=== PATIENT | female | born 1960 | race Caucasian/White ===

== ENCOUNTER → 2017-11-11 | Day surgery (SDC) | payer MEDICAID ==
[~2017-11-11] MED LIST: Lactated Ringers 1,000 ML IV SCH; Midazolam 1 MG/ML 2 ML SDV ONE; Propofol 200 MG/20 ML SDV ONE; fentaNYL 100 MCG/2 ML SDV ONE
[2017-11-11 11:28] VITALS: BP 143/96
--- NOTE | 2017-11-11 11:48 | OR ---
DATE OF PROCEDURE: 11/11/2017 PREOPERATIVE DIAGNOSIS: History of colon polyps. POSTOPERATIVE DIAGNOSES: 1. Unremarkable colonoscopy. 2. History of colon polyps. PROCEDURE: Colonoscopy to the cecum. SURGEON: Salazar Lema MD. ANESTHESIA: IV anesthesia with monitored anesthesia care. INDICATION: This 57-year-old white female is here for a colonoscopy. She has a history of colon polyps. She says her last colonoscopic exam was done four years ago, at which point, she had five polyps removed. I counseled her for the procedure, including risks and alternatives, and she gave her informed consent to proceed. DESCRIPTION OF PROCEDURE: The patient was placed in the left lateral decubitus position. IV anesthesia was administered by the Anesthesia Service. Time-out was held. A rectal exam was performed, which was unremarkable. The flexible video Olympus colonoscope was introduced through her anus, up her rectum, and out her colon all the way to the cecum. Once the cecum was reached, the scope was slowly withdrawn, examining the mucosa throughout. No mucosal abnormalities were noted. No neoplastic lesions were seen. The scope was retroflexed in the rectum with the distal rectum appearing unremarkable. The scope was straightened and removed. She tolerated the procedure well. Salazar Lema MD /[id number] MTDD
== END ==
LOC: JP.SDS 07:37
PROVIDERS: ATTEND Surgery
DX: Z12.11 Encounter for screening for malignant neoplasm of colon (principal); Z86.010 Personal history of colon polyps; Z88.1 Allergy status to other antibiotic agents; Z88.8 Allergy status to other drugs, medicaments and biological substances; Z91.030 Bee allergy status
CPT/HCPCS: 45378; J2250; J2704; J3010; J7120

== ENCOUNTER 2019-11-08 12:35 | Emergency (ER) | payer MEDICAID ==
[2019-11-08 13:21] VITALS: BP 160/90; PULSE 79
--- NOTE | 2019-11-08 13:56 | EDM.PDOC ---
ED HPI GENERAL MEDICAL PROBLEM - General Chief Complaint: General Stated Complaint: chest pain LEFT ARM PAIN Time Seen by Provider: 11/08/19 13:59 Source of Information: Reports: Patient History Limitations: Reports: No Limitations - History of Present Illness INITIAL COMMENTS - FREE TEXT/NARRATIVE: pt was working at the [facility] home today. She was doing some some deep cleaning of a room because the resident was discharged. She developed acute left arm pain and she became very sweaty. Onset: Today, Sudden Duration: Hour(s): Location: Reports: Upper Extremity, Left, Other (pt was very diaphoretic. ) Associated Symptoms: Reports: Diaphoresis, Shortness of Breath Left Arm Pain Score (Numeric/FACES): 6 - Related Data Allergies Allergy/AdvReac Type Severity Reaction Status Date / Time amoxicillin [Amoxicillin] Allergy Rash Verified 11/08/19 13:25 cephalexin monohydrate Allergy Rash Verified 11/08/19 13:25 [From Keflex] ciprofloxacin [From Cipro] Allergy Rash Verified 11/08/19 13:25 ciprofloxacin HCl Allergy Rash Verified 11/08/19 13:25 [From Cipro] doxycycline Allergy Rash Verified 11/08/19 13:25 venom-honey bee Allergy Swelling Verified 11/08/19 13:25 [bee venom (honey bee)] Home Meds: Home Meds Acetaminophen/HYDROcodone [[place] 325-5 MG] 1 tab PO Q6H PRN 11/28/13 [History] Loratadine [Claritin] 10 mg PO DAILY 11/28/13 [History] Losartan [Cozaar] 50 mg PO DAILY 11/28/13 [History] Omeprazole 20 mg PO DAILY 11/28/13 [History] Potassium Chloride [Klor-Con M20] 20 meq PO DAILY 11/28/13 [History] Sertraline [Zoloft] 50 mg PO DAILY 11/28/13 [History] Simvastatin [Zocor] 20 mg PO BEDTIME 11/28/13 [History] Zolpidem [Ambien] 10 mg PO BEDTIME PRN 11/28/13 [History] hydroCHLOROthiazide [Hydrochlorothiazide] 25 mg PO DAILY 11/28/13 [History] metFORMIN [Glucophage] 1,000 mg PO BID 11/28/13 [History] Clear-Atadine 10 mg PO DAILY 11/09/17 [History] Insulin Glargine,Hum.Rec.Anlog [Elisha Miguel] 80 units SUBCUT BEDTIME 11/09/17 [History] Liraglutide [Victoza] 1.8 mg SUBCUT DAILY 11/09/17 [History] Metoprolol Succinate [Toprol XL] 25 mg PO DAILY 11/09/17 [History] Aspirin 325 mg PO DAILY 08/11/18 [History] atenoloL [Tenormin] 25 mg PO DAILY 08/11/18 [History] Past Medical History HEENT History: Reports: Impaired Vision Cardiovascular History: Reports: High Cholesterol, Hypertension Gastrointestinal History: Reports: Cholelithiasis, GERD Musculoskeletal History: Reports: Other (See Below) Other Musculoskeletal History: left knee injury Endocrine/Metabolic History: Reports: Diabetes, Type II, Osteoporosis Immunologic History: Reports: Other (See Below) Other Immunologic History: lyme disease - Past Surgical History HEENT Surgical History: Reports: None Cardiovascular Surgical History: Reports: None GI Surgical History: Reports: Cholecystectomy, Colonoscopy, Polypectomy Female Surgical History: Reports: Section Social & Family History - Tobacco Use Smoking Status *Q: Never Smoker - Caffeine Use Caffeine Use: Reports: Coffee - Recreational Drug Use Recreational Drug Use: No - Living Situation & Occupation Living situation: Reports: ED ROS GENERAL - Review of Systems Review Of Systems: See Below Constitutional: Reports: Other (pt developed severe left arm pain) HEENT: Reports: No Symptoms Respiratory: Reports: No Symptoms Cardiovascular: Reports: Other (pt developed acute left arm pain and did become very diaphoretic. ) Endocrine: Reports: No Symptoms GI/Abdominal: Reports: No Symptoms, Other (pt has r) : Reports: No Symptoms Musculoskeletal: Reports: Other ( severe pain in the left upper arm. She did become diaphoretic at that time. ) Skin: Reports: No Symptoms ED EXAM, GENERAL - Physical Exam Exam: See Below Free Text/Narrative:: pt arrived after developing severe left arm pain after moving some furtniture. She did become diaphoretic. Exam Limited By: No Limitations General Appearance: Alert, Mild Distress, Severe Distress Ears: Normal TMs Nose: Normal Inspection Throat/Mouth: Normal Inspection Head: Atraumatic Neck: Normal Inspection Respiratory/Chest: No Respiratory Distress Cardiovascular: Regular Rate, Rhythm, Other (no significant chest wall tenderness. ) GI/Abdominal: Soft, Non-Tender (Female) Exam: Deferred Rectal (Female) Exam: Deferred Back Exam: Normal Inspection Extremities: Other (pt has mild tenderness in the upper arm. ) Neurological: Alert, Oriented, Normal Cognition Psychiatric: Anxious Course - Vital Signs Last Recorded V/S: Last Vital Signs Temp 36.7 C 11/08/19 13:29 Pulse 79 11/08/19 13:29 Resp 20 11/08/19 13:29 BP 160/90 H 11/08/19 13:29 Pulse Ox 96 11/08/19 13:29 - Orders/Labs/Meds Labs: Laboratory Tests 11/08/19 11/08/19 11/08/19 Range/Units 14:08 14:08 14:08 WBC 8.1 (4.5-11.0) K/uL RBC 4.29 (3.30-5.50) M/uL Hgb 12.9 (12.0-15.0) g/dL Hct 37.8 (36.0-48.0) % MCV 88 (80-98) fL MCH 30 (27-31) pg MCHC 34 (32-36) % Plt Count 180 (150-400) K/uL Neut % (Auto) 60 (36-66) % Lymph % (Auto) 29 (24-44) % [place] % (Auto) 9 H (2-6) % Eos % (Auto) 2 (2-4) % Baso % (Auto) 0 (0-1) % Sodium 142 (140-148) mmol/L Potassium 3.4 L (3.6-5.2) mmol/L Chloride 106 (100-108) mmol/L Carbon Dioxide 29 (21-32) mmol/L Anion Gap 10.4 (5.0-14.0) mmol/L BUN 18 (7-18) mg/dL Creatinine 0.9 (0.6-1.0) mg/dL Est Cr Clr Drug Dosing 47.15 mL/min Estimated GFR (MDRD) > 60 (>60) Glucose 170 H (74-106) mg/dL Calcium 9.5 (8.5-10.1) mg/dL Total Bilirubin 0.3 (0.2-1.0) mg/dL AST 47 H (15-37) U/L ALT 69 (12-78) U/L Alkaline Phosphatase 58 (46-116) U/L Troponin I < 0.017 (0.000-0.056) ng/mL Total Protein 7.5 (6.4-8.2) g/dL Albumin 3.8 (3.4-5.0) g/dL Globulin 3.7 H (2.3-3.5) g/dL Albumin/Globulin Ratio 1.0 L (1.2-2.2) Meds: Medications Discontinued Medications Generic Name Dose Route Start Last Admin Trade Name Eric PRN Reason Stop Dose Admin Aspirin 324 mg 11/08/19 13:58 11/08/19 14:06 Aspirin PO 11/08/19 13:59 324 mg ONETIME ONE Administration - Re-Assessments/Exams Free Text/Narrative Re-Assessment/Exam: 11/08/19 16:15 Pt arrived with a history of pain in the upper arm on the left e diaphoretic after that. her trop was neg. Her other labs looked good. She remained painfree. 11/12/19 07:30 pt had a ekg with no acute changes. Departure - Departure Time of Disposition: 16:01 Disposition: Home, Self-Care 01 Condition: Fair Clinical Impression: Left arm pain, Diaphoresis - Discharge Information Instructions: Nonspecific Chest Pain, Adult Referrals: Kevin Huffman MD [Primary Care Provider] - Forms: ED Department Discharge Care Plan Goals: rtc for a cardiac stress test, rtc if the pain should reoccur, no work tomorrow. Sepsis Event Note (ED) - Evaluation Sepsis Screening Result: No Definite Risk
[2019-11-08] MEDS ORDERED: Aspirin 81 MG Tab.Chew PO ONE (13:58)
--- NOTE | 2019-11-08 14:36 | CR ---
CHEST: Portable 11/08/2019 at 2:18 PM CLINICAL HISTORY:Left arm pain COMPARISON:2016 FINDINGS: The heart is mildly enlarged pulmonary vascular is normal. There are atherosclerotic changes in the aorta.. No infiltrates are seen Impression: Mild cardiomegaly No acute cardiopulmonary process.
== END 2019-11-08 16:26 | disposition home or self-care (01) ==
LOC: JP.ED 12:35
DX: M79.622 Pain in left upper arm (principal); R61 Generalized hyperhidrosis; E78.00 Pure hypercholesterolemia, unspecified; I10 Essential (primary) hypertension; K21.9 Gastro-esophageal reflux disease without esophagitis; E11.9 Type 2 diabetes mellitus without complications; Z79.899 Other long term (current) drug therapy; Z79.4 Long term (current) use of insulin; Z79.82 Long term (current) use of aspirin; Z88.1 Allergy status to other antibiotic agents; Z91.030 Bee allergy status; X50.9XXA Other and unspecified overexertion or strenuous movements or postures, initial encounter; Y92.129 Unspecified place in nursing home as the place of occurrence of the external cause
CPT/HCPCS: 36415; 71045; 80053; 84484; 85025; 93005; 99285; A9270

== ENCOUNTER 2020-03-22 15:32 | Inpatient (IN) | payer MEDICAID ==
[2020-03-22] MEDS ORDERED: Acetaminophen 325 MG Tab PO PRN ×2 (18:08→19:31)
[2020-03-22] MEDS ORDERED: Albuterol/Ipratropium 4 GM Inhalation Spray INH STA (18:11)
--- NOTE | 2020-03-22 18:13 | EDM.PDOC ---
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 She has been afebrile complains of dry mouth sore throat - Related Data Allergies Allergy/AdvReac Type Severity Reaction Status Date / Time amoxicillin [Amoxicillin] Allergy Rash Verified 03/22/20 17:32 cephalexin monohydrate Allergy Rash Verified 03/22/20 17:32 [From Keflex] ciprofloxacin [From Cipro] Allergy Rash Verified 03/22/20 17:32 ciprofloxacin HCl Allergy Rash Verified 03/22/20 17:32 [From Cipro] doxycycline Allergy Rash Verified 03/22/20 17:32 venom-honey bee Allergy Swelling Verified 03/22/20 17:32 [bee venom (honey bee)] Home Meds: Home Meds Acetaminophen/HYDROcodone [[place] 325-5 MG] 1 tab PO Q6H PRN 11/28/13 [History] Loratadine [Claritin] 10 mg PO DAILY 11/28/13 [History] Losartan [Cozaar] 50 mg PO DAILY 11/28/13 [History] Omeprazole 20 mg PO DAILY 11/28/13 [History] Potassium Chloride [Klor-Con M20] 20 meq PO DAILY 11/28/13 [History] Simvastatin [Zocor] 20 mg PO BEDTIME 11/28/13 [History] Zolpidem [Ambien] 10 mg PO BEDTIME PRN 11/28/13 [History] hydroCHLOROthiazide [Hydrochlorothiazide] 25 mg PO DAILY 11/28/13 [History] metFORMIN [Glucophage] 1,000 mg PO BID 11/28/13 [History] Insulin Glargine,Hum.Rec.Anlog [Elisha Miguel] 80 units SUBCUT BEDTIME 11/09/17 [History] Liraglutide [Victoza] 1.8 mg SUBCUT DAILY 11/09/17 [History] Aspirin 325 mg PO DAILY 08/11/18 [History] atenoloL [Tenormin] 25 mg PO DAILY 08/11/18 [History] Insulin Aspart [NovoLOG] 1 - 10 unit SQ WITHMEALSANDBED PRN 03/22/20 [History] Past Medical History HEENT History: Reports: Impaired Vision Cardiovascular History: Reports: High Cholesterol, Hypertension Gastrointestinal History: Reports: Cholelithiasis, GERD 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: Musculoskeletal History: Reports: Osteoporosis, Other (See Below) Other Musculoskeletal History: left knee injury Endocrine/Metabolic History: Reports: Diabetes, Type II, Obesity/BMI 30+, Osteoporosis Immunologic History: Reports: Other (See Below) Other Immunologic History: lyme disease - Past Surgical History Head Surgeries/Procedures: Reports: None HEENT Surgical History: Reports: None Cardiovascular Surgical History: Reports: None GI Surgical History: Reports: Cholecystectomy, Colonoscopy, Polypectomy Female Surgical History: Reports: Section Endocrine Surgical History: Reports: None Musculoskeletal Surgical History: Reports: None Dermatological Surgical History: Reports: None Social & Family History - Tobacco Use Tobacco Use Status *Q: Former Tobacco User Used Tobacco, but Quit: Yes Month/Year Tobacco Last Used: 1989 Second Hand Smoke Exposure: No - Caffeine Use Caffeine Use: Reports: Coffee, Soda - Recreational Drug Use Recreational Drug Use: No - Living Situation & Occupation Living situation: Reports: ED ROS GENERAL - Review of Systems Review Of Systems: See Below Constitutional: Reports: Weakness. Denies: Fever HEENT: Reports: Throat Pain Respiratory: Reports: Shortness of Breath. Denies: Wheezing, Cough, Sputum Cardiovascular: Reports: Dyspnea on Exertion GI/Abdominal: Reports: No Symptoms : Reports: No Symptoms ED EXAM, GENERAL - Physical Exam Exam: See Below Exam Limited By: No Limitations General Appearance: Alert, Mild Distress Neck: Normal Inspection, Supple, Non-Tender, Full Range of Motion Respiratory/Chest: No Respiratory Distress, Lungs Clear, Normal Breath Sounds, No Accessory Muscle Use, Chest Non-Tender Cardiovascular: Regular Rate, Rhythm, No Murmur GI/Abdominal: Soft, Non-Tender Course - Vital Signs Last Recorded V/S: Last Vital Signs Temp 100.0 F 03/22/20 17:35 Pulse 67 03/22/20 19:15 Resp 18 03/22/20 17:35 BP 106/51 L 03/22/20 19:15 Pulse Ox 90 L 03/22/20 17:35 - Orders/Labs/Meds Orders: Active Orders 24 hr Category Date Time Status Nurse Communication: Isolation [RC] ASDIRECTED Care 03/22/20 19:32 Active RT Post Treatment Assessment [RC] Click to Edit Care 03/22/20 18:11 Active Chest 1V Frontal [CR] Stat Exams 03/22/20 18:09 Ordered CORONAVIRUS COVID-19, IRENE Stat Lab 03/22/20 18:08 Ordered Acetaminophen [TylenoL] Med 03/22/20 18:08 Active 650 mg PO Q4H PRN Acetaminophen [TylenoL] Med 03/22/20 19:31 Active 650 mg PO Q4H PRN Dextrose 50% in Water Med 03/22/20 20:10 Ordered 50 ml IVPUSH ASDIRECTED PRN Glucagon,Human Recombinant [GlucaGen] Med 03/22/20 20:10 Ordered 1 mg IM ASDIRECTED PRN Isolation [COMM] Routine Oth 03/22/20 18:09 Ordered Isolation [COMM] Stat Oth 03/22/20 18:08 Ordered Isolation [COMM] Stat Oth 03/22/20 19:31 Ordered Medication Orders Acetaminophen (Tylenol) 650 mg PO Q4H PRN PRN Reason: Fever Greater Than 101 Last Admin: 03/22/20 18:28 Dose: 650 mg Documented by: MOY Acetaminophen (Tylenol) 650 mg PO Q4H PRN PRN Reason: Fever Greater Than 101 Dextrose/Water (Dextrose 50% In Water) 50 ml IVPUSH ASDIRECTED PRN PRN Reason: Hypoglycemia Glucagon (Glucagen) 1 mg IM ASDIRECTED PRN PRN Reason: Hypoglycemia Labs: Laboratory Tests 03/22/20 03/22/20 03/22/20 Range/Units 17:30 17:30 17:30 WBC 6.2 (4.5-11.0) K/uL RBC 4.59 (3.30-5.50) M/uL Hgb 13.4 (12.0-15.0) g/dL Hct 41.5 (36.0-48.0) % MCV 90 (80-98) fL MCH 29 (27-31) pg MCHC 32 (32-36) % Plt Count 123 L (150-400) K/uL Neut % (Auto) 68 H (36-66) % Lymph % (Auto) 22 L (24-44) % [place] % (Auto) 9 H (2-6) % Eos % (Auto) 0 L (2-4) % Baso % (Auto) 0 (0-1) % D-Dimer, Quantitative 322 (0.0-400.0) ng/mL Puncture Site ABG pH (7.350-7.450) ABG pCO2 (35.0-42.0) mmHg ABG pO2 (75.0-100.0) mmHg ABG HCO3 (22.0-26.0) mmol/L ABG Total CO2 (21.0-25.0) mmol/L ABG O2 Saturation (95.0-98.0) % ABG O2 Content (15.0-23.0) %vol ABG Base Excess mm/L ABG Hemoglobin (12.0-16.0) g/dL ABG Oxyhemoglobin % ABG Carboxyhemoglobin (0.0-1.6) % ABG Methemoglobin % Kartik Test O2 Delivery Device Oxygen Flow Rate L Sodium (140-148) mmol/L Potassium (3.6-5.2) mmol/L Chloride (100-108) mmol/L Carbon Dioxide (21-32) mmol/L Anion Gap (5.0-14.0) mmol/L BUN (7-18) mg/dL Creatinine (0.6-1.0) mg/dL Est Cr Clr Drug Dosing mL/min Estimated GFR (MDRD) (>60) Glucose (74-106) mg/dL Lactic Acid (0.4-2.0) mmol/L Calcium (8.5-10.1) mg/dL Ferritin 523 H (8-388) ng/ml Total Bilirubin (0.2-1.0) mg/dL Direct Bilirubin (0.0-0.2) mg/dL Indirect Bilirubin AST (15-37) U/L ALT (12-78) U/L Alkaline Phosphatase (46-116) U/L Lactate Dehydrogenase (82-234) U/L C-Reactive Protein (0.0-0.3) mg/dL Total Protein (6.4-8.2) g/dL Albumin (3.4-5.0) g/dL Globulin (2.3-3.5) g/dL Albumin/Globulin Ratio (1.2-2.2) Procalcitonin ng/mL SARS-CoV-2 RNA (IRENE) (NEGATIVE) 03/22/20 03/22/20 03/22/20 Range/Units 17:30 17:30 17:30 WBC (4.5-11.0) K/uL RBC (3.30-5.50) M/uL Hgb (12.0-15.0) g/dL Hct (36.0-48.0) % MCV (80-98) fL MCH (27-31) pg MCHC (32-36) % Plt Count (150-400) K/uL Neut % (Auto) (36-66) % Lymph % (Auto) (24-44) % [place] % (Auto) (2-6) % Eos % (Auto) (2-4) % Baso % (Auto) (0-1) % D-Dimer, Quantitative (0.0-400.0) ng/mL Puncture Site ABG pH (7.350-7.450) ABG pCO2 (35.0-42.0) mmHg ABG pO2 (75.0-100.0) mmHg ABG HCO3 (22.0-26.0) mmol/L ABG Total CO2 (21.0-25.0) mmol/L ABG O2 Saturation (95.0-98.0) % ABG O2 Content (15.0-23.0) %vol ABG Base Excess mm/L ABG Hemoglobin (12.0-16.0) g/dL ABG Oxyhemoglobin % ABG Carboxyhemoglobin (0.0-1.6) % ABG Methemoglobin % Kartik Test O2 Delivery Device Oxygen Flow Rate L Sodium (140-148) mmol/L Potassium (3.6-5.2) mmol/L Chloride (100-108) mmol/L Carbon Dioxide (21-32) mmol/L Anion Gap (5.0-14.0) mmol/L BUN (7-18) mg/dL Creatinine (0.6-1.0) mg/dL Est Cr Clr Drug Dosing mL/min Estimated GFR (MDRD) (>60) Glucose (74-106) mg/dL Lactic Acid 1.9 (0.4-2.0) mmol/L Calcium (8.5-10.1) mg/dL Ferritin (8-388) ng/ml Total Bilirubin 0.4 (0.2-1.0) mg/dL Direct Bilirubin 0.18 (0.0-0.2) mg/dL Indirect Bilirubin 0.22 AST 70 H (15-37) U/L ALT 69 (12-78) U/L Alkaline Phosphatase 46 (46-116) U/L Lactate Dehydrogenase 407 H (82-234) U/L C-Reactive Protein 1.76 H (0.0-0.3) mg/dL Total Protein 7.1 (6.4-8.2) g/dL Albumin 2.9 L (3.4-5.0) g/dL Globulin 4.2 H (2.3-3.5) g/dL Albumin/Globulin Ratio 0.7 L (1.2-2.2) Procalcitonin 0.07 ng/mL SARS-CoV-2 RNA (IRENE) (NEGATIVE) 03/22/20 03/22/20 03/22/20 Range/Units 18:08 18:31 19:45 WBC (4.5-11.0) K/uL RBC (3.30-5.50) M/uL Hgb (12.0-15.0) g/dL Hct (36.0-48.0) % MCV (80-98) fL MCH (27-31) pg MCHC (32-36) % Plt Count (150-400) K/uL Neut % (Auto) (36-66) % Lymph % (Auto) (24-44) % [place] % (Auto) (2-6) % Eos % (Auto) (2-4) % Baso % (Auto) (0-1) % D-Dimer, Quantitative (0.0-400.0) ng/mL Puncture Site Rt.radial ABG pH 7.470 H (7.350-7.450) ABG pCO2 36.6 (35.0-42.0) mmHg ABG pO2 56.2 L (75.0-100.0) mmHg ABG HCO3 26.3 H (22.0-26.0) mmol/L ABG Total CO2 23.2 (21.0-25.0) mmol/L ABG O2 Saturation 89.7 L (95.0-98.0) % ABG O2 Content 16.3 (15.0-23.0) %vol ABG Base Excess 3.2 mm/L ABG Hemoglobin 13.2 (12.0-16.0) g/dL ABG Oxyhemoglobin 87.8 % ABG Carboxyhemoglobin 1.4 (0.0-1.6) % ABG Methemoglobin 0.7 % Kartik Test Passed O2 Delivery Device Nasal cannula Oxygen Flow Rate 4.0 L Sodium 136 L (140-148) mmol/L Potassium 3.9 (3.6-5.2) mmol/L Chloride 99 L (100-108) mmol/L Carbon Dioxide 25 (21-32) mmol/L Anion Gap 15.9 H (5.0-14.0) mmol/L BUN 22 H (7-18) mg/dL Creatinine 1.2 H (0.6-1.0) mg/dL Est Cr Clr Drug Dosing 35.36 mL/min Estimated GFR (MDRD) 46 L (>60) Glucose 413 H* (74-106) mg/dL Lactic Acid (0.4-2.0) mmol/L Calcium 8.8 (8.5-10.1) mg/dL Ferritin (8-388) ng/ml Total Bilirubin (0.2-1.0) mg/dL Direct Bilirubin (0.0-0.2) mg/dL Indirect Bilirubin AST (15-37) U/L ALT (12-78) U/L Alkaline Phosphatase (46-116) U/L Lactate Dehydrogenase (82-234) U/L C-Reactive Protein (0.0-0.3) mg/dL Total Protein (6.4-8.2) g/dL Albumin (3.4-5.0) g/dL Globulin (2.3-3.5) g/dL Albumin/Globulin Ratio (1.2-2.2) Procalcitonin ng/mL SARS-CoV-2 RNA (IRENE) Positive H (NEGATIVE) Meds: Medications Generic Name Dose Route Start Last Admin Trade Name Freq PRN Reason Stop Dose Admin Acetaminophen 650 mg 03/22/20 18:08 03/22/20 18:28 Tylenol PO 650 mg Q4H PRN Administration Fever Greater Than 101 Acetaminophen 650 mg 03/22/20 19:31 Tylenol PO Q4H PRN Fever Greater Than 101 Dextrose/Water 50 ml 03/22/20 20:10 Dextrose 50% In Water IVPUSH ASDIRECTED PRN Hypoglycemia Glucagon 1 mg 03/22/20 20:10 Glucagen IM ASDIRECTED PRN Hypoglycemia Discontinued Medications Generic Name Dose Route Start Last Admin Trade Name Freq PRN Reason Stop Dose Admin Albuterol/Ipratropium 1 gm 03/22/20 18:11 03/22/20 18:29 Combivent Respimat INH 03/22/20 18:12 1 gm NOW STA Administration Dexamethasone 6 mg 03/22/20 19:31 Dexamethasone PO 03/22/20 19:32 NOW STA Remdesivir 200 mg/ Sodium 250 mls @ 250 mls/hr 03/22/20 19:31 Chloride IV 03/22/20 19:32 ONETIME ONE Insulin Human Regular 15 unit 03/22/20 20:10 Humulin R SUBCUT 03/22/20 20:11 ONETIME ONE Departure - Departure Time of Disposition: 20:16 Disposition: Admitted As Inpatient 64 Condition: Fair Clinical Impression: COVID-19 - Discharge Information Referrals: Kevin Huffman MD [Primary Care Provider] - Forms: ED Department Discharge Sepsis Event Note (ED) - Evaluation Sepsis Screening Result: No Definite Risk - Focused Exam Vital Signs: Vital Signs Temp Pulse Resp BP Pulse Ox 03/22/20 19:15 67 106/51 L 03/22/20 17:35 100.0 F 75 18 111/54 L 90 L 03/22/20 17:25 90 L 03/22/20 17:23 100.0 F 75 18 111/54 L 85 L - My Orders Last 24 Hours: My Active Orders 03/22/20 18:08 CORONAVIRUS COVID-19, IRENE Stat Acetaminophen [TylenoL] 650 mg PO Q4H PRN Isolation [COMM] Stat 03/22/20 18:09 Chest 1V Frontal [CR] Stat Isolation [COMM] Routine 03/22/20 18:11 RT Post Treatment Assessment [RC] Click to Edit 03/22/20 19:31 Acetaminophen [TylenoL] 650 mg PO Q4H PRN Isolation [COMM] Stat 03/22/20 19:32 Nurse Communication: Isolation [RC] ASDIRECTED 03/22/20 20:10 Dextrose 50% in Water 50 ml IVPUSH ASDIRECTED PRN Glucagon,Human Recombinant [GlucaGen] 1 mg IM ASDIRECTED PRN - Assessment/Plan Last 24 Hours: My Active Orders 03/22/20 18:08 CORONAVIRUS COVID-19, IRENE Stat Acetaminophen [TylenoL] 650 mg PO Q4H PRN Isolation [COMM] Stat 03/22/20 18:09 Chest 1V Frontal [CR] Stat Isolation [COMM] Routine 03/22/20 18:11 RT Post Treatment Assessment [RC] Click to Edit 03/22/20 19:31 Acetaminophen [TylenoL] 650 mg PO Q4H PRN Isolation [COMM] Stat 03/22/20 19:32 Nurse Communication: Isolation [RC] ASDIRECTED 03/22/20 20:10 Dextrose 50% in Water 50 ml IVPUSH ASDIRECTED PRN Glucagon,Human Recombinant [GlucaGen] 1 mg IM ASDIRECTED PRN Plan: Assessment Acuity = acute Site and laterality = COVID-19 syndrome Etiology = COVID-19 Manifestations = hypoxia, dyspnea Location of injury = Home Lab values = CBC unremarkable D-dimer normal 322 ABG reveals pH 7.47 and bicarb 26.3 CO2 of 36.6 creatinine elevated 1.2 consistent with acute renal failure stage G3 a glucose markedly elevated 413 consistent hyperglycemia lactic acid normal 1.9 ferritin elevated 523 AST elevated at 70 LDH elevated 407 CRP elevated 1.76 procalcitonin 0.07 Covid is positive chest x-ray pending Plan Discussed case with hospitalist on-call at 1999 he kindly agreed to come and evaluate the patient in the hospital for admission because she is hypoxic requiring oxygen to maintain her saturation remdesivir was initiated in the ED as well as dexamethasone This note was dictated using [employer] voice recognition software please call with any questions on syntax or grammar.
[2020-03-22] MEDS ORDERED: Dexamethasone 4 MG Tab PO STA (19:31)
[2020-03-22] MEDS ORDERED: Glucagon,Human Recombinant 1 MG Vial IM PRN (20:10)
[2020-03-22] MEDS ORDERED: 50% Dextrose in Water 50 ML Syringe IVPUSH PRN (20:10)
[2020-03-22] MEDS ORDERED: Insulin Regular, Human 100 Units/ML 3 ML Vial SUBCUT ONE (20:10)
[2020-03-22] MEDS ORDERED: Sodium Chloride 0.9% 10 ML Syringe FLUSH PRN (22:19)
[2020-03-22] MEDS ORDERED: Acetaminophen/HYDROcodone 325-5 MG Tab PO PRN (22:19)
[2020-03-22] MEDS ORDERED: Albuterol/Ipratropium 3.0-0.5 MG/3 ML Neb Soln NEB PRN (22:19)
[2020-03-22] MEDS ORDERED: Polyethylene Glycol 3350 Powder 17 GM Packet PO PRN (22:19)
[2020-03-22] MEDS ORDERED: Glucose Gel 15 GM in 37.5 GM Tube PO PRN (22:19)
[2020-03-22] MEDS ORDERED: Enoxaparin 40 MG/0.4 ML Syringe SUBCUT SCH (22:19)
[2020-03-22] MEDS ORDERED: 50% Dextrose in Water 50 ML Syringe IV PRN (22:19)
[2020-03-22] MEDS ORDERED: Ondansetron 4 MG/2 ML SDV IV PRN (22:19)
[2020-03-22] MEDS ORDERED: Acetaminophen 650 MG Supp RECTAL PRN (22:19)
[2020-03-22] MEDS ORDERED: Albuterol 0.083% 2.5 MG/3 ML Neb Soln NEB PRN (22:19)
--- NOTE | 2020-03-22 22:22 | PCM.HP.2 ---
H&P History of Present Illness - General Date of Service: 03/22/20 Admit Problem/Dx: Admission Diagnosis/Problem Admission Diagnosis/Problem Pneumonia Source of Information: Patient, Provider, RN Notes Reviewed History Limitations: Reports: No Limitations - History of Present Illness Initial Comments - Free Text/Narative: Ms. Lin is a 59-year-old woman who was admitted through the emergency department with weakness, myalgias, and shortness of breath, secondary to bila teral pneumonia and COVID-19. She reports onset of symptoms yesterday with marked fatigue and myalgias, chills but no obvious fevers that she is aware of. Over the last 24 hours has developed progressive shortness of breath and weakness. On evaluation in the emergency department white blood cell count is normal, COVID-19 is positive. Chest x-ray shows bilateral infiltrates. While in the emergency department she has been noted to be hypoxic, but has corrected with supplemental oxygen in the range of 3 to 4 L per nasal cannula. Does have known underlying type 2 diabetes mellitus. - Related Data Allergies/Adverse Reactions: Allergies Allergy/AdvReac Type Severity Reaction Status Date / Time amoxicillin [Amoxicillin] Allergy Rash Verified 03/22/20 17:32 cephalexin monohydrate Allergy Rash Verified 03/22/20 17:32 [From Keflex] ciprofloxacin [From Cipro] Allergy Rash Verified 03/22/20 17:32 ciprofloxacin HCl Allergy Rash Verified 03/22/20 17:32 [From Cipro] doxycycline Allergy Rash Verified 03/22/20 17:32 venom-honey bee Allergy Swelling Verified 03/22/20 17:32 [bee venom (honey bee)] Home Medications: Home Meds Acetaminophen/HYDROcodone [[place] 325-5 MG] 1 tab PO Q6H PRN 11/28/13 [History] Loratadine [Claritin] 10 mg PO DAILY 11/28/13 [History] Losartan [Cozaar] 50 mg PO DAILY 11/28/13 [History] Omeprazole 20 mg PO DAILY 11/28/13 [History] Potassium Chloride [Klor-Con M20] 20 meq PO DAILY 11/28/13 [History] Simvastatin [Zocor] 20 mg PO BEDTIME 11/28/13 [History] Zolpidem [Ambien] 10 mg PO BEDTIME PRN 11/28/13 [History] hydroCHLOROthiazide [Hydrochlorothiazide] 25 mg PO DAILY 11/28/13 [History] metFORMIN [Glucophage] 1,000 mg PO BID 11/28/13 [History] Insulin Glargine,Hum.Rec.Anlog [Toujeo Solostar] 80 units SUBCUT BEDTIME 11/09/17 [History] Liraglutide [Victoza] 1.8 mg SUBCUT DAILY 11/09/17 [History] Aspirin 325 mg PO DAILY 08/11/18 [History] atenoloL [Tenormin] 25 mg PO DAILY 08/11/18 [History] Insulin Aspart [NovoLOG] 1 - 10 unit SQ WITHMEALSANDBED PRN 03/22/20 [History] Past Medical History HEENT History: Reports: Impaired Vision Cardiovascular History: Reports: High Cholesterol, Hypertension Gastrointestinal History: Reports: Cholelithiasis, GERD Genitourinary History: Reports: None 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: Musculoskeletal History: Reports: Osteoporosis, Other (See Below) Other Musculoskeletal History: left knee injury Endocrine/Metabolic History: Reports: Diabetes, Type II, Obesity/BMI 30+, Osteoporosis Immunologic History: Reports: Other (See Below) Other Immunologic History: lyme disease - Past Surgical History Head Surgeries/Procedures: Reports: None HEENT Surgical History: Reports: None Cardiovascular Surgical History: Reports: None GI Surgical History: Reports: Cholecystectomy, Colonoscopy, Polypectomy Female Surgical History: Reports: Section Endocrine Surgical History: Reports: None Musculoskeletal Surgical History: Reports: None Dermatological Surgical History: Reports: None Social & Family History - Tobacco Use Tobacco Use Status *Q: Former Tobacco User Used Tobacco, but Quit: Yes Month/Year Tobacco Last Used: 1989 Second Hand Smoke Exposure: No - Caffeine Use Caffeine Use: Reports: Coffee, Soda - Recreational Drug Use Recreational Drug Use: No - Living Situation & Occupation Living situation: Reports: H&P Review of Systems - Review of Systems: Review Of Systems: See Below General: Reports: Chills, Malaise, Weakness, Fatigue, Decreased Appetite HEENT: Reports: No Symptoms Pulmonary: Reports: Shortness of Breath, Cough. Denies: Wheezing, Pleuritic Chest Pain, Sputum, Hemoptysis Cardiovascular: Reports: Dyspnea on Exertion. Denies: Chest Pain, Palpitations, Orthopnea, PND, Edema, Lightheadedness Gastrointestinal: Reports: No Symptoms Genitourinary: Reports: No Symptoms Musculoskeletal: Reports: Muscle Pain, Muscle Stiffness Skin: Reports: No Symptoms Psychiatric: Reports: No Symptoms Neurological: Reports: No Symptoms Hematologic/Lymphatic: Reports: No Symptoms Immunologic: Reports: No Symptoms Exam - Exam Exam: See Below - Vital Signs Vital Signs: Last Vital Signs Temp 100.0 F 03/22/20 17:35 Pulse 67 03/22/20 19:15 Resp 18 03/22/20 17:35 BP 106/51 L 03/22/20 19:15 Pulse Ox 90 L 03/22/20 20:59 Weight: 175 lb - Exam Quality Assessment: Supplemental Oxygen, DVT Prophylaxis General: Alert, Oriented, Cooperative, Moderate Distress HEENT: Conjunctiva Clear, Hearing Intact, Mucosa Moist & [place], Normal Nasal Septum, Posterior Pharynx Clear, Pupils Equal Neck: Supple, Trachea Midline, +2 Carotid Pulse wo Bruit Lungs: Rales. No: Crackles, Rhonchi, Wheezing Cardiovascular: Regular Rate, Regular Rhythm, Normal S1, Normal S2. No: Systolic Murmur, Diastolic Murmur GI/Abdominal Exam: Soft, Non-Tender, No Organomegaly, No Distention Back Exam: Normal Inspection, Full Range of Motion Extremities: Non-Tender, No Pedal Edema Skin: Warm, Dry, Intact Neurological: Cranial Nerves Intact, Strength Equal Bilateral, Normal Speech, Normal Tone, Sensation Intact. No: Focal Deficit Neuro Extensive - Mental Status: Alert, Oriented x3, Normal Mood/Affect, Normal Cognition, Memory Intact - Patient Data Lab Results Last 24 hrs: Laboratory Results - last 24 hr 03/22/20 03/22/20 03/22/20 Range/Units 17:30 17:30 17:30 WBC 6.2 (4.5-11.0) K/uL RBC 4.59 (3.30-5.50) M/uL Hgb 13.4 (12.0-15.0) g/dL Hct 41.5 (36.0-48.0) % MCV 90 (80-98) fL MCH 29 (27-31) pg MCHC 32 (32-36) % Plt Count 123 L (150-400) K/uL Neut % (Auto) 68 H (36-66) % Lymph % (Auto) 22 L (24-44) % [place] % (Auto) 9 H (2-6) % Eos % (Auto) 0 L (2-4) % Baso % (Auto) 0 (0-1) % D-Dimer, Quantitative 322 (0.0-400.0) ng/mL Puncture Site ABG pH (7.350-7.450) ABG pCO2 (35.0-42.0) mmHg ABG pO2 (75.0-100.0) mmHg ABG HCO3 (22.0-26.0) mmol/L ABG Total CO2 (21.0-25.0) mmol/L ABG O2 Saturation (95.0-98.0) % ABG O2 Content (15.0-23.0) %vol ABG Base Excess mm/L ABG Hemoglobin (12.0-16.0) g/dL ABG Oxyhemoglobin % ABG Carboxyhemoglobin (0.0-1.6) % ABG Methemoglobin % Kartik Test O2 Delivery Device Oxygen Flow Rate L Sodium (140-148) mmol/L Potassium (3.6-5.2) mmol/L Chloride (100-108) mmol/L Carbon Dioxide (21-32) mmol/L Anion Gap (5.0-14.0) mmol/L BUN (7-18) mg/dL Creatinine (0.6-1.0) mg/dL Est Cr Clr Drug Dosing mL/min Estimated GFR (MDRD) (>60) Glucose (74-106) mg/dL Lactic Acid (0.4-2.0) mmol/L Calcium (8.5-10.1) mg/dL Ferritin 523 H (8-388) ng/ml Total Bilirubin (0.2-1.0) mg/dL Direct Bilirubin (0.0-0.2) mg/dL Indirect Bilirubin AST (15-37) U/L ALT (12-78) U/L Alkaline Phosphatase (46-116) U/L Lactate Dehydrogenase (82-234) U/L C-Reactive Protein (0.0-0.3) mg/dL Total Protein (6.4-8.2) g/dL Albumin (3.4-5.0) g/dL Globulin (2.3-3.5) g/dL Albumin/Globulin Ratio (1.2-2.2) Procalcitonin ng/mL SARS-CoV-2 RNA (IRENE) (NEGATIVE) 03/22/20 03/22/20 03/22/20 Range/Units 17:30 17:30 17:30 WBC (4.5-11.0) K/uL RBC (3.30-5.50) M/uL Hgb (12.0-15.0) g/dL Hct (36.0-48.0) % MCV (80-98) fL MCH (27-31) pg MCHC (32-36) % Plt Count (150-400) K/uL Neut % (Auto) (36-66) % Lymph % (Auto) (24-44) % [place] % (Auto) (2-6) % Eos % (Auto) (2-4) % Baso % (Auto) (0-1) % D-Dimer, Quantitative (0.0-400.0) ng/mL Puncture Site ABG pH (7.350-7.450) ABG pCO2 (35.0-42.0) mmHg ABG pO2 (75.0-100.0) mmHg ABG HCO3 (22.0-26.0) mmol/L ABG Total CO2 (21.0-25.0) mmol/L ABG O2 Saturation (95.0-98.0) % ABG O2 Content (15.0-23.0) %vol ABG Base Excess mm/L ABG Hemoglobin (12.0-16.0) g/dL ABG Oxyhemoglobin % ABG Carboxyhemoglobin (0.0-1.6) % ABG Methemoglobin % Kartik Test O2 Delivery Device Oxygen Flow Rate L Sodium (140-148) mmol/L Potassium (3.6-5.2) mmol/L Chloride (100-108) mmol/L Carbon Dioxide (21-32) mmol/L Anion Gap (5.0-14.0) mmol/L BUN (7-18) mg/dL Creatinine (0.6-1.0) mg/dL Est Cr Clr Drug Dosing mL/min Estimated GFR (MDRD) (>60) Glucose (74-106) mg/dL Lactic Acid 1.9 (0.4-2.0) mmol/L Calcium (8.5-10.1) mg/dL Ferritin (8-388) ng/ml Total Bilirubin 0.4 (0.2-1.0) mg/dL Direct Bilirubin 0.18 (0.0-0.2) mg/dL Indirect Bilirubin 0.22 AST 70 H (15-37) U/L ALT 69 (12-78) U/L Alkaline Phosphatase 46 (46-116) U/L Lactate Dehydrogenase 407 H (82-234) U/L C-Reactive Protein 1.76 H (0.0-0.3) mg/dL Total Protein 7.1 (6.4-8.2) g/dL Albumin 2.9 L (3.4-5.0) g/dL Globulin 4.2 H (2.3-3.5) g/dL Albumin/Globulin Ratio 0.7 L (1.2-2.2) Procalcitonin 0.07 ng/mL SARS-CoV-2 RNA (IRENE) (NEGATIVE) 03/22/20 03/22/20 03/22/20 Range/Units 18:08 18:31 19:45 WBC (4.5-11.0) K/uL RBC (3.30-5.50) M/uL Hgb (12.0-15.0) g/dL Hct (36.0-48.0) % MCV (80-98) fL MCH (27-31) pg MCHC (32-36) % Plt Count (150-400) K/uL Neut % (Auto) (36-66) % Lymph % (Auto) (24-44) % [place] % (Auto) (2-6) % Eos % (Auto) (2-4) % Baso % (Auto) (0-1) % D-Dimer, Quantitative (0.0-400.0) ng/mL Puncture Site Rt.radial ABG pH 7.470 H (7.350-7.450) ABG pCO2 36.6 (35.0-42.0) mmHg ABG pO2 56.2 L (75.0-100.0) mmHg ABG HCO3 26.3 H (22.0-26.0) mmol/L ABG Total CO2 23.2 (21.0-25.0) mmol/L ABG O2 Saturation 89.7 L (95.0-98.0) % ABG O2 Content 16.3 (15.0-23.0) %vol ABG Base Excess 3.2 mm/L ABG Hemoglobin 13.2 (12.0-16.0) g/dL ABG Oxyhemoglobin 87.8 % ABG Carboxyhemoglobin 1.4 (0.0-1.6) % ABG Methemoglobin 0.7 % Kartik Test Passed O2 Delivery Device Nasal cannula Oxygen Flow Rate 4.0 L Sodium 136 L (140-148) mmol/L Potassium 3.9 (3.6-5.2) mmol/L Chloride 99 L (100-108) mmol/L Carbon Dioxide 25 (21-32) mmol/L Anion Gap 15.9 H (5.0-14.0) mmol/L BUN 22 H (7-18) mg/dL Creatinine 1.2 H (0.6-1.0) mg/dL Est Cr Clr Drug Dosing 35.36 mL/min Estimated GFR (MDRD) 46 L (>60) Glucose 413 H* (74-106) mg/dL Lactic Acid (0.4-2.0) mmol/L Calcium 8.8 (8.5-10.1) mg/dL Ferritin (8-388) ng/ml Total Bilirubin (0.2-1.0) mg/dL Direct Bilirubin (0.0-0.2) mg/dL Indirect Bilirubin AST (15-37) U/L ALT (12-78) U/L Alkaline Phosphatase (46-116) U/L Lactate Dehydrogenase (82-234) U/L C-Reactive Protein (0.0-0.3) mg/dL Total Protein (6.4-8.2) g/dL Albumin (3.4-5.0) g/dL Globulin (2.3-3.5) g/dL Albumin/Globulin Ratio (1.2-2.2) Procalcitonin ng/mL SARS-CoV-2 RNA (IRENE) Positive H (NEGATIVE) Result Diagrams: 03/22/20 17:30 03/22/20 19:45 Kyree Results Last 24 hrs: Microbiology 03/22/20 18:33 Influenza Type A Antigen Screen - Final Nasal Aspirate, Unspecified NEGATIVE INFLUENZA A VIRUS AG REFERENCE RANGE: NEGATIVE Influenza Type B Antigen Screen - Final NEGATIVE INFLUENZA B VIRUS AG REFERENCE RANGE: NEGATIVE Sepsis Event Note - Evaluation Sepsis Screening Result: No Definite Risk - Focused Exam Vital Signs: Vital Signs Temp Pulse Resp BP Pulse Ox 10/29/20 20:59 90 L 03/22/20 19:15 67 106/51 L 03/22/20 17:35 100.0 F 75 18 111/54 L 90 L 03/22/20 17:25 90 L 03/22/20 17:23 100.0 F 75 18 111/54 L 85 L *Q Meaningful Use (ADM) - VTE Risk Assess *Q Each Risk Factor Represents 1 Point: Obesity ( BMI > 25 kg/m2), Serious lung disease including pneumonia Total Score 1 Point Risk Factors: 2 Each Risk Factor Represents 2 Points: Age 60 - 74 Years Total Score 2 Point Risk Factors: 2 Each Risk Factor Represents 3 Points: None Total Score 3 Point Risk Factors: 0 Each Risk Factor Represents 5 Points: None Total Score 5 Point Risk Factors: 0 Venous Thromboembolism Risk Factor Score *Q: 4 Problem List Initiated/Reviewed/Updated: Yes Orders Last 24hrs: Active Orders 24 hr Category Date Time Status Patient Status Manage Transfer [TRANSFER] Routine ADT 03/22/20 22:05 Ordered Nurse Communication: Isolation [RC] ASDIRECTED Care 03/22/20 19:32 Active RT Post Treatment Assessment [RC] Click to Edit Care 03/22/20 18:11 Active Chest 1V Frontal [CR] Stat Exams 03/22/20 18:09 Taken CORONAVIRUS COVID-19, IRENE Stat Lab 03/22/20 18:08 Ordered Acetaminophen [TylenoL] Med 03/22/20 18:08 Active 650 mg PO Q4H PRN Acetaminophen [TylenoL] Med 03/22/20 19:31 Active 650 mg PO Q4H PRN Dextrose 50% in Water Med 03/22/20 20:10 Active 50 ml IVPUSH ASDIRECTED PRN Glucagon,Human Recombinant [GlucaGen] Med 03/22/20 20:10 Active 1 mg IM ASDIRECTED PRN Isolation [COMM] Routine Oth 03/22/20 18:09 Ordered Isolation [COMM] Stat Oth 03/22/20 18:08 Ordered Isolation [COMM] Stat Oth 03/22/20 19:31 Ordered Resuscitation Status Routine Resus Stat 03/22/20 22:08 Ordered Medication Orders Acetaminophen (Tylenol) 650 mg PO Q4H PRN PRN Reason: Fever Greater Than 101 Last Admin: 03/22/20 18:28 Dose: 650 mg Documented by: MOY Acetaminophen (Tylenol) 650 mg PO Q4H PRN PRN Reason: Fever Greater Than 101 Dextrose/Water (Dextrose 50% In Water) 50 ml IVPUSH ASDIRECTED PRN PRN Reason: Hypoglycemia Glucagon (Glucagen) 1 mg IM ASDIRECTED PRN PRN Reason: Hypoglycemia Assessment/Plan Comment:: ASSESSMENT AND PLAN BILATERAL PNEUMONIA SECONDARY TO [id number] rapid onset of symptoms over the last 36 hours. Progressive weakness, myalgias, and shortness of breath. -Minimize IV fluids -Remdesivir 200 mg IV given in the emergency department, then 100 mg IV every 24 hours x4 days starting tomorrow -Dexamethasone 6 mg IV x5 to 10 days -Supportive care HYPOXIA-secondary to bilateral pneumonia and COVID-19 -Albuterol as needed -Supplemental oxygen as needed -Continuous pulse oximetry TYPE 2 DIABETES MELLITUS -Continue usual dose of long-acting insulin -Hold Metformin -4 times daily glucometers -High-dose sliding scale Humalog MAINTENANCE ISSUES -DVT prophylaxis; Yadav 40 mg subcu daily -GI prophylaxis; continue outpatient PPI -Maradiaga catheter; not indicated -Nutrition; consistent carbohydrate diet -Nicotine dependence; not required CODE STATUS-FULL CODE ADMISSION STATUS-patient will be admitted to inpatient status, expect at least a 2 night hospital stay for evaluation and management of problems as outlined above. At the time of this admission I do not reasonably expected evaluation and management of this problem will require more than a 96 hour hospital stay. DISPOSITION-anticipate discharge to home after the hospital stay. PRIMARY CARE PROVIDER-Dr. Huffman - Mortality Measure Prognosis:: Good
[2020-03-23] MEDS ORDERED: Albuterol 8 GM Inhaler INH PRN (02:20)
[2020-03-23] MEDS: Albuterol/Ipratropium 4 GM Inhalation Spray INH SCH ×4 (03:13→14:23)
[2020-03-23] MEDS ORDERED: Pantoprazole 40 MG Tab.CR PO SCH (07:30)
[2020-03-23] MEDS ORDERED: Potassium Chloride 20 MEQ Tab.ER PO SCH (08:00)
[2020-03-23] MEDS: Insulin Lispro 100 Unit/ML 3 ML KwikPen SUBCUT SCH ×3 (08:14→17:43)
[2020-03-23] MEDS ORDERED: Aspirin 325 MG Tab.EC PO SCH (09:00)
[2020-03-23] MEDS ORDERED: Atenolol 25 MG Tab PO SCH (09:00)
[2020-03-23] MEDS ORDERED: Liraglutide (rDNA Origin) 0.6 MG/0.1 ML 3 ML Pen SUBCUT SCH (09:00)
[2020-03-23] MEDS ORDERED: Loratadine 10 MG Tab PO SCH (09:00)
[2020-03-23] MEDS ORDERED: Hydrochlorothiazide 25 MG Tab PO SCH (09:00)
[2020-03-23] MEDS ORDERED: Losartan 50 MG Tab PO SCH (09:00)
--- NOTE | 2020-03-23 09:19 | CR ---
CHEST: Portable 03/22/2020 at 856 CLINICAL HISTORY:Respiratory failure COMPARISON:11/08/2019 FINDINGS: Less than optimal inspiration and large body habitus exaggerates lung markings. There are patchy infiltrates in both lower lung wolf, left greater than right. Heart size is upper limits of normal but exaggerated by poor inspiratory level. There are atherosclerotic changes in the aorta. Impression: Limited study with poor inspiratory level Patchy bilateral lower lung infiltrates left greater than right Short-term follow-up recommended until clear
[2020-03-23] MEDS ORDERED: Patient's Own Medication 1 Each ONE (13:21)
[2020-03-23 18:17] VITALS: PULSE 80
[2020-03-23] MEDS ORDERED: propofoL 100 ML ONE (19:44)
[2020-03-23 19:52] VITALS: BP 130/71
[2020-03-23] MEDS ORDERED: REMDESIVIR (EUA) 100 MG in Sodium Chloride 0.9% 100 ML IV SCH (20:00)
[2020-03-23] MEDS ORDERED: Dexamethasone 4 MG/ML SDV IVPUSH SCH (20:00)
[2020-03-23] MEDS ORDERED: Enoxaparin 40 MG/0.4 ML Syringe SUBCUT SCH (20:00)
--- NOTE | 2020-03-23 20:11 | PCM.DCSUM1 ---
Discharge Summary - Hospital Course Brief History: Ms. Lin is a 59-year-old woman who was admitted through the emergency department with shortness of breath and hypoxia secondary to bilateral pneumonia and COVID-19. - Discharge Data Discharge Date: 03/23/20 Discharge Disposition: DC/Tfer to Acute Hospital 02 Condition: Serious - Referral to [facility] Primary Care Physician: Kevin Huffman MD - Discharge Diagnosis/Problem(s) (1) Acute respiratory failure with hypoxia SNOMED Code(s): 89144050, 198076946 ICD Code: J96.01 - ACUTE RESPIRATORY FAILURE WITH HYPOXIA Status: Acute Current Visit: Yes (2) Bilateral pneumonia SNOMED Code(s): 342433800 ICD Code: J18.9 - PNEUMONIA, UNSPECIFIED ORGANISM Status: Acute Current Visit: Yes (3) COVID-19 SNOMED Code(s): 994613195 ICD Code: U07.1 - COVID-19 Status: Acute Current Visit: Yes (4) Type 2 diabetes mellitus SNOMED Code(s): 77968575 ICD Code: E11.9 - TYPE 2 DIABETES MELLITUS WITHOUT COMPLICATIONS Status: Chronic Current Visit: No - Patient Summary/Data Hospital Course: Ms. Lin is a 59-year-old woman who was admitted through the emergency department with weakness, myalgias, and shortness of breath, secondary to bilateral pneumonia and COVID-19. She reports onset of symptoms yesterday with marked fatigue and myalgias, chills but no obvious fevers that she is aware of. Over the last 24 hours has developed progressive shortness of breath and weakness. On evaluation in the emergency department white blood cell count is normal, COVID-19 is positive. Chest x-ray shows bilateral infiltrates. While in the emergency department she has been noted to be hypoxic, but has corrected with supplemental oxygen in the range of 3 to 4 L per nasal cannula. She does have known underlying type 2 diabetes mellitus. She was started on usual dose of remdesivir and Decadron while in the emergency department. While hospitalized blood sugars were monitored and she received her long-acting insulin as well as high-dose sliding scale Humalog. She was not given IV fluids in the emergency department or after admission. Unfortunately through the night she did have increased respiratory compromise requiring increasing levels of supplemental oxygen. On the afternoon of transfer she was on 15 L of oxygen via high flow nasal cannula and still had saturations in the mid 80s. She was transferred to the intensive care unit and given a trial of noninvasive positive pressure ventilation. Unfortunately this was unsuccessful in improving her respiratory status. She was noted to have increased respiratory rate while on BiPAP in the mid 30s on 80% FiO2 with saturations in the 80s. For this reason decision was made to proceed with intubation and mechanical ventilation. Anesthesia service was contacted and she was intubated. She will be transferred via [facility] ambulance to [facility] in [facility] for higher level of care and subspecialty management. - Patient Instructions Diet: NPO Other/Special Instructions: Patient will be transferred to [facility] in [facility] via [facility] ambulance - Discharge Plan *PRESCRIPTION DRUG MONITORING PROGRAM REVIEWED*: Not Applicable *COPY OF PRESCRIPTION DRUG MONITORING REPORT IN PATIENT CATRINA: Not Applicable Home Medications: Home Meds Acetaminophen/HYDROcodone [[place] 325-5 MG] 1 tab PO Q6H PRN 11/28/13 [History] Loratadine [Claritin] 10 mg PO DAILY 11/28/13 [History] Losartan [Cozaar] 50 mg PO DAILY 11/28/13 [History] Omeprazole 20 mg PO DAILY 11/28/13 [History] Potassium Chloride [Klor-Con M20] 20 meq PO DAILY 11/28/13 [History] Simvastatin [Zocor] 20 mg PO BEDTIME 11/28/13 [History] Zolpidem [Ambien] 10 mg PO BEDTIME PRN 11/28/13 [History] hydroCHLOROthiazide [Hydrochlorothiazide] 25 mg PO DAILY 11/28/13 [History] metFORMIN [Glucophage] 1,000 mg PO BID 11/28/13 [History] Insulin Glargine,Hum.Rec.Anlog [Toujeo Solostar] 80 units SUBCUT BEDTIME 11/09/17 [History] Liraglutide [Victoza] 1.8 mg SUBCUT DAILY 11/09/17 [History] Aspirin 325 mg PO DAILY 08/11/18 [History] atenoloL [Tenormin] 25 mg PO DAILY 08/11/18 [History] Insulin Aspart [NovoLOG] 1 - 10 unit SQ WITHMEALSANDBED PRN 03/22/20 [History] Remdesivir (Eua) [Remdesivir (EUA)] 100 mg IV Q24H vial 03/23/20 [Rx] dexAMETHasone [Dexamethasone] 6 mg IVPUSH Q24H sdv 03/23/20 [Rx] Referrals: Kevin Huffman MD [Primary Care Provider] - - Discharge Summary/Plan Comment DC Time >30 min.: No - Patient Data Vitals - Most Recent: Last Vital Signs Temp 96.8 F L 03/23/20 19:51 Pulse 80 03/23/20 18:00 Resp 30 H 03/23/20 19:51 BP 130/71 03/23/20 19:51 Pulse Ox 89 L 03/23/20 19:51 Weight - Most Recent: 164 lb 6.414 oz I&O - Last 24 hours: Intake & Output 03/23/20 03/23/20 03/23/20 06:59 14:59 22:59 Intake Total 360 780 Balance 360 780 Lab Results - Last 24 hrs: Laboratory Results - last 24 hr 03/23/20 03/23/20 03/23/20 Range/Units 05:20 05:20 08:09 WBC 3.9 L (4.5-11.0) K/uL RBC 4.28 (3.30-5.50) M/uL Hgb 12.9 (12.0-15.0) g/dL Hct 39.1 (36.0-48.0) % MCV 91 (80-98) fL MCH 30 (27-31) pg MCHC 33 (32-36) % Plt Count 115 L (150-400) K/uL Neut % (Auto) 75 H (36-66) % Lymph % (Auto) 20 L (24-44) % Sioux % (Auto) 5 (2-6) % Eos % (Auto) 0 L (2-4) % Baso % (Auto) 1 (0-1) % Puncture Site ABG pH (7.350-7.450) ABG pCO2 (35.0-42.0) mmHg ABG pO2 (75.0-100.0) mmHg ABG HCO3 (22.0-26.0) mmol/L ABG Total CO2 (21.0-25.0) mmol/L ABG O2 Saturation (95.0-98.0) % ABG O2 Content (15.0-23.0) %vol ABG Base Excess mm/L ABG Hemoglobin (12.0-16.0) g/dL ABG Oxyhemoglobin % ABG Carboxyhemoglobin (0.0-1.6) % ABG Methemoglobin % Kartik Test O2 Delivery Device Oxygen Flow Rate L Sodium 136 L (140-148) mmol/L Potassium 4.4 (3.6-5.2) mmol/L Chloride 101 (100-108) mmol/L Carbon Dioxide 29 (21-32) mmol/L Anion Gap 10.4 (5.0-14.0) mmol/L BUN 23 H (7-18) mg/dL Creatinine 1.2 H (0.6-1.0) mg/dL Est Cr Clr Drug Dosing 35.36 mL/min Estimated GFR (MDRD) 46 L (>60) Glucose 491 H* (74-106) mg/dL POC Glucose > 500 H* (74-106) MG/DL Calcium 8.3 L (8.5-10.1) mg/dL Ferritin (8-388) ng/ml Total Bilirubin 0.3 (0.2-1.0) mg/dL AST 60 H (15-37) U/L ALT 59 (12-78) U/L Alkaline Phosphatase 45 L (46-116) U/L C-Reactive Protein 1.69 H (0.0-0.3) mg/dL Total Protein 6.5 (6.4-8.2) g/dL Albumin 2.5 L (3.4-5.0) g/dL Globulin 4.0 H (2.3-3.5) g/dL Albumin/Globulin Ratio 0.6 L (1.2-2.2) 03/23/20 03/23/20 03/23/20 Range/Units 08:10 11:30 13:29 WBC (4.5-11.0) K/uL RBC (3.30-5.50) M/uL Hgb (12.0-15.0) g/dL Hct (36.0-48.0) % MCV (80-98) fL MCH (27-31) pg MCHC (32-36) % Plt Count (150-400) K/uL Neut % (Auto) (36-66) % Lymph % (Auto) (24-44) % Sioux % (Auto) (2-6) % Eos % (Auto) (2-4) % Baso % (Auto) (0-1) % Puncture Site Lt radial ABG pH 7.471 H (7.350-7.450) ABG pCO2 35.9 (35.0-42.0) mmHg ABG pO2 67.2 L (75.0-100.0) mmHg ABG HCO3 25.8 (22.0-26.0) mmol/L ABG Total CO2 22.7 (21.0-25.0) mmol/L ABG O2 Saturation 93.9 L (95.0-98.0) % ABG O2 Content 16.8 (15.0-23.0) %vol ABG Base Excess 2.8 mm/L ABG Hemoglobin 13.1 (12.0-16.0) g/dL ABG Oxyhemoglobin 91.2 % ABG Carboxyhemoglobin 2.1 H (0.0-1.6) % ABG Methemoglobin 0.8 % Kartik Test Passed O2 Delivery Device Nasal cannula Oxygen Flow Rate 15.0 L Sodium (140-148) mmol/L Potassium (3.6-5.2) mmol/L Chloride (100-108) mmol/L Carbon Dioxide (21-32) mmol/L Anion Gap (5.0-14.0) mmol/L BUN (7-18) mg/dL Creatinine (0.6-1.0) mg/dL Est Cr Clr Drug Dosing mL/min Estimated GFR (MDRD) (>60) Glucose 494 H* (74-106) mg/dL POC Glucose 352 H (74-106) MG/DL Calcium (8.5-10.1) mg/dL Ferritin (8-388) ng/ml Total Bilirubin (0.2-1.0) mg/dL AST (15-37) U/L ALT (12-78) U/L Alkaline Phosphatase (46-116) U/L C-Reactive Protein (0.0-0.3) mg/dL Total Protein (6.4-8.2) g/dL Albumin (3.4-5.0) g/dL Globulin (2.3-3.5) g/dL Albumin/Globulin Ratio (1.2-2.2) 03/23/20 03/23/20 Range/Units 13:39 18:55 WBC (4.5-11.0) K/uL RBC (3.30-5.50) M/uL Hgb (12.0-15.0) g/dL Hct (36.0-48.0) % MCV (80-98) fL MCH (27-31) pg MCHC (32-36) % Plt Count (150-400) K/uL Neut % (Auto) (36-66) % Lymph % (Auto) (24-44) % Sioux % (Auto) (2-6) % Eos % (Auto) (2-4) % Baso % (Auto) (0-1) % Puncture Site Rt radial ABG pH 7.499 H (7.350-7.450) ABG pCO2 34.7 L (35.0-42.0) mmHg ABG pO2 57.9 L (75.0-100.0) mmHg ABG HCO3 26.7 H (22.0-26.0) mmol/L ABG Total CO2 23.4 (21.0-25.0) mmol/L ABG O2 Saturation 90.4 L (95.0-98.0) % ABG O2 Content 16.5 (15.0-23.0) %vol ABG Base Excess 4.1 mm/L ABG Hemoglobin 13.3 (12.0-16.0) g/dL ABG Oxyhemoglobin 88.8 % ABG Carboxyhemoglobin 0.9 (0.0-1.6) % ABG Methemoglobin 0.9 % Kartik Test Passed O2 Delivery Device Nasal cannula Oxygen Flow Rate L Sodium (140-148) mmol/L Potassium (3.6-5.2) mmol/L Chloride (100-108) mmol/L Carbon Dioxide (21-32) mmol/L Anion Gap (5.0-14.0) mmol/L BUN (7-18) mg/dL Creatinine (0.6-1.0) mg/dL Est Cr Clr Drug Dosing mL/min Estimated GFR (MDRD) (>60) Glucose (74-106) mg/dL POC Glucose (74-106) MG/DL Calcium (8.5-10.1) mg/dL Ferritin 507 H (8-388) ng/ml Total Bilirubin (0.2-1.0) mg/dL AST (15-37) U/L ALT (12-78) U/L Alkaline Phosphatase (46-116) U/L C-Reactive Protein (0.0-0.3) mg/dL Total Protein (6.4-8.2) g/dL Albumin (3.4-5.0) g/dL Globulin (2.3-3.5) g/dL Albumin/Globulin Ratio (1.2-2.2) [facility] Results - Last 24 hrs: Microbiology 03/22/20 18:33 Influenza Type A Antigen Screen - Final Nasal Aspirate, Unspecified NEGATIVE INFLUENZA A VIRUS AG REFERENCE RANGE: NEGATIVE Influenza Type B Antigen Screen - Final NEGATIVE INFLUENZA B VIRUS AG REFERENCE RANGE: NEGATIVE Med Orders - Current: Current Medications Acetaminophen (Tylenol) 650 mg RECTAL Q4H PRN PRN Reason: Mild pain/fever Hydrocodone Bitart/Acetaminophen ([place] 325-5 Mg) 1 tab PO Q6H PRN PRN Reason: Pain Albuterol (Ventolin Hfa) 0 gm INH Q4H PRN PRN Reason: Shortness of Breath Albuterol/Ipratropium (Combivent Respimat) 0 gm INH QIDRT [facility] Last Admin: 03/23/20 14:23 Dose: 1 puff Documented by: Aspirin (Ecotrin) 325 mg PO DAILY [facility] Last Admin: 03/23/20 08:03 Dose: 325 mg Documented by: Atenolol (Tenormin) 25 mg PO DAILY [facility] Last Admin: 03/23/20 11:39 Dose: Not Given Documented by: Dexamethasone (Dexamethasone) 6 mg IVPUSH Q24H [facility] Dextrose (Glutose 15) 15 gm PO ONETIME PRN PRN Reason: Hypoglycemia Dextrose/Water (Dextrose 50% In Water) 50 ml IV ONETIME PRN PRN Reason: Hypoglycemia Enoxaparin Sodium (Lovenox) 40 mg SUBCUT Q24H [facility] Hydrochlorothiazide (Hydrochlorothiazide) 25 mg PO DAILY [facility] Last Admin: 03/23/20 08:03 Dose: 25 mg Documented by: Remdesivir 100 mg/ Sodium (Chloride) 100 mls @ 100 mls/hr IV Q24H [facility] Stop: 03/26/20 20:59 Insulin Glargine (Lantus Solostar) 64 units SUBCUT BEDTIME [facility] Insulin Human Lispro (Humalog) 0 unit SUBCUT QIDACANDBED [facility]; Protocol Last Admin: 03/23/20 17:43 Dose: 6 units Documented by: Liraglutide (Victoza) 1.8 mg SUBCUT DAILY [facility] Last Admin: 03/23/20 08:10 Dose: 1.8 mg Documented by: Loratadine (Claritin) 10 mg PO DAILY [facility] Last Admin: 03/23/20 08:02 Dose: 10 mg Documented by: Losartan Potassium (Cozaar) 50 mg PO DAILY [facility] Last Admin: 03/23/20 11:39 Dose: Not Given Documented by: Ondansetron HCl (Zofran) 4 mg IV Q4H PRN PRN Reason: Nausea/Vomiting Pantoprazole Sodium (Protonix) 40 mg PO ACBREAKFAST [facility] Last Admin: 03/23/20 08:02 Dose: 40 mg Documented by: Polyethylene Glycol (Miralax) 17 gm PO DAILY PRN PRN Reason: Constipation Potassium Chloride (Klor-Con M20) 20 meq PO DAILY@0800 [facility] Last Admin: 03/23/20 08:02 Dose: 20 meq Documented by: Simvastatin (Zocor) 20 mg PO BEDTIME [facility] Sodium Chloride (Saline Flush) 10 ml FLUSH ASDIRECTED PRN PRN Reason: Keep Vein Open Discontinued Medications Acetaminophen (Tylenol) 650 mg PO Q4H PRN PRN Reason: Fever Greater Than 101 Last Admin: 03/22/20 18:28 Dose: 650 mg Documented by: Acetaminophen (Tylenol) 650 mg PO Q4H PRN PRN Reason: Fever Greater Than 101 Albuterol (Proventil Neb Soln) 2.5 mg NEB Q4H PRN PRN Reason: Shortness Of Breath/wheezing Albuterol/Ipratropium (Combivent Respimat) 1 gm INH NOW STA Stop: 03/22/20 18:12 Last Admin: 03/22/20 18:29 Dose: 1 gm Documented by: Albuterol/Ipratropium (Duoneb 3.0-0.5 Mg/3 Ml) 3 ml NEB QID PRN PRN Reason: Shortness Of Breath/wheezing Dexamethasone (Dexamethasone) 6 mg PO NOW STA Stop: 03/22/20 19:32 Last Admin: 03/22/20 20:43 Dose: 6 mg Documented by: Dextrose/Water (Dextrose 50% In Water) 50 ml IVPUSH ASDIRECTED PRN PRN Reason: Hypoglycemia Enoxaparin Sodium (Lovenox) 40 mg SUBCUT DAILY [facility] Last Admin: 03/23/20 00:34 Dose: 40 mg Documented by: Glucagon (Glucagen) 1 mg IM ASDIRECTED PRN PRN Reason: Hypoglycemia Remdesivir 200 mg/ Sodium (Chloride) 250 mls @ 250 mls/hr IV ONETIME ONE Stop: 03/22/20 19:32 Last Admin: 03/22/20 20:44 Dose: 250 mls/hr Documented by: Propofol (Diprivan 100 Ml) Confirm Administered Dose 100 mls @ as directed .ROUTE .STK-MED ONE Stop: 03/23/20 19:45 Last Admin: 03/23/20 20:02 Dose: 5 mls/hr Documented by: Insulin Human Regular (Humulin R) 15 unit SUBCUT ONETIME ONE Stop: 03/22/20 20:11 Last Admin: 03/22/20 20:41 Dose: 15 unit Documented by: Patient Own Medication (Ptom) Confirm Administered Dose 1 each .ROUTE .STK-MED ONE Stop: 03/23/20 13:22 Last Admin: 03/23/20 15:44 Dose: Not Given Documented by: - Exam General: Reports: Alert, Oriented, Cooperative, Severe Distress Lungs: Reports: Rales. Denies: Crackles, Rhonchi, Wheezing Cardiovascular: Reports: Regular Rate, Regular Rhythm, No Murmurs GI/Abdominal Exam: Soft, Non-Tender, No Organomegaly, No Distention Extremities: Non-Tender, No Pedal Edema
[2020-03-23] MEDS ORDERED: Succinylcholine 200 MG/10 ML MDV ONE (20:34)
[2020-03-23] MEDS ORDERED: Propofol 200 MG/20 ML SDV ONE (20:34)
[2020-03-23] MEDS ORDERED: Simvastatin 20 MG Tab PO SCH (21:00)
[2020-03-23] MEDS ORDERED: Insulin Glargine,Human Rec. Analog 100 Units/ML 3 ML Pen SUBCUT SCH (21:00)
--- NOTE | 2020-03-24 04:23 | ANES ---
DATE OF SERVICE: 03/23/2020 I was called this evening by Dr. Peter, our hospitalist, for a lady who is positive for COVID, and is in respiratory distress, and they are worried about her having respiratory failure soon. Blood gases, PaO2 was noted to be in the 50s, so Dr. Peter called me to intubate the patient at the patient's bedside at approximately 2014. The patient did not seem to be in any severe respiratory distress. Color was good. SpO2 was approximately 87% to 88% on 15 L high flow nasal cannula. The patient was alert and orientated. I did discuss, what we are going to do with the patient, that I was going to put the patient asleep and then put a breathing tube in. The patient has had no problems with anesthesia before. She was given all the risks prior to intubation. Monitors were all set up. Ambu bag was at the ready. Suction was at the ready. I did bag-valve mask the patient on 15 L while inducing with 120 mg of propofol and 100 mg of succinylcholine IV push. I then proceeded to intubate the patient using a MAC 3 blade. Grade 1 view of the vocal cords was noted. A 7.5 endotracheal tube was inserted and secured at approximately 22 cm at teeth. Did have bilateral breath sounds after intubation. O2 saturation actually went up to about 92% to 93% on 15 L via the endotracheal tube. Blood pressure did drop a little bit, but nothing significant. HME was also put on the endotracheal tube post intubation. X-ray was then taken. It was noted that the endotracheal tube was real close to the oswaldo, so the endotracheal tube was pulled back about 1 cm to approximately 21 cm at the teeth. The x-ray was redone, and endotracheal tube was noted to be above the oswaldo and was looked at by Dr. Peter also. Our line was not started because the patient will be transferred to [place] for further care. Maikol Esteves CRNA /[id number]
--- NOTE | 2020-03-26 09:23 | CR ---
CHEST: Portable 03/23/2020 at 3:13 PM CLINICAL HISTORY:Worsening hypoxia COMPARISON:03/22/2020 FINDINGS: Patient has bilateral lower lobe infiltrates. There is an increase since the 9 study. Heart size and pulmonary vascularity are normal. Resolution is technically less than optimal due to applied technique. Impression: Increasing bilateral lower lobe infiltrates left greater than right
--- NOTE | 2020-03-26 09:25 | CR ---
CHEST: Portable 03/23/2020 at 8:26 PM CLINICAL HISTORY:Postintubation COMPARISON:03/23/2020 at 3:13 PM FINDINGS: Patient has been intubated. Endotracheal tube is in the origin of the right mainstem bronchus. Bilateral infiltrates persist without change. Impression: Endotracheal intubation. Tube is in the origin of the right mainstem bronchus CHEST: Portable 03/23/2020 at 8:28 PM CLINICAL HISTORY:Intubation COMPARISON:Earlier same day FINDINGS: The endotracheal tube remains at the origin of the right mainstem bronchus. Patient has bilateral pulmonary infiltrates similar to prior study. Impression: The tracheal tube at the origin of the right mainstem bronchus
--- NOTE | 2020-03-26 09:37 | CR ---
CHEST: Portable 03/23/2020 at 8:29 PM CLINICAL HISTORY:Hypoxia, to change COMPARISON:Multiple prior studies FINDINGS: Endotracheal tube is just above the oswaldo. There are bilateral lower lobe infiltrates with apparent increasing consolidation in the right lung base and probable right effusion there is no significant change in the left. Impression: Endotracheal tube is in the distal trachea less than 1 cm above the oswaldo. Bilateral lower lobe infiltrates. There is increasing density on the right suggesting some consolidation CHEST: Portable 03/23/2020 at 8:30 PM CLINICAL HISTORY:Endotracheal tube positioning COMPARISON:Earlier same day FINDINGS: Endotracheal tube is been withdrawn. It is now approximately 1.7 cm above the oswaldo. There are bilateral lower lobe infiltrates with an area of consolidation in the right lower lobe. Impression: Endotracheal tube now in the distal trachea Bilateral lower lobe infiltrates and some consolidation now, right greater than left .
== END 2020-03-23 20:45 | DRG 208 ==
LOC: JP.ED 15:32 → JP.2SS 22:19 → JP.ICU 03-23 16:29
PROVIDERS: ADMIT Hospitalist; ATTEND Hospitalist
PROC: XW033E5 Introduction of Remdesivir Anti-infective into Peripheral Vein, Percutaneous Approach, New Technology Group 5 (ICD-10-PCS; principal; 2020-03-22)
PROC: 5A1935Z Respiratory Ventilation, Less than 24 Consecutive Hours (ICD-10-PCS; 2020-03-22)
PROC: 0BH17EZ Insertion of Endotracheal Airway into Trachea, Via Natural or Artificial Opening (ICD-10-PCS; 2020-03-22)
DX: U07.1 COVID-19 (principal); J12.89 Other viral pneumonia; J96.01 Acute respiratory failure with hypoxia; E11.9 Type 2 diabetes mellitus without complications; E78.00 Pure hypercholesterolemia, unspecified; I10 Essential (primary) hypertension; K21.9 Gastro-esophageal reflux disease without esophagitis; M81.0 Age-related osteoporosis without current pathological fracture; E66.9 Obesity, unspecified; H54.7 Unspecified visual loss; Z88.0 Allergy status to penicillin; Z88.1 Allergy status to other antibiotic agents; Z91.030 Bee allergy status; Z79.82 Long term (current) use of aspirin; Z79.4 Long term (current) use of insulin; Z79.899 Other long term (current) drug therapy; Z90.49 Acquired absence of other specified parts of digestive tract; Z87.891 Personal history of nicotine dependence; Z68.32 Body mass index [BMI] 32.0-32.9, adult
CPT/HCPCS: 36415; 36600; 71045; 71045-26; 80048; 80053; 80076; 82728; 82803; 82947; 82962; 83605; 83615; 84145; 85025; 85379; 86140; 87804; 87804-59; 94640; 94660; 94762; 99285; A9270-GY; J0330; J1650; J1815; J1815-GY; J2704; J7050; J8540; U0002